=== PATIENT | female | born 1950 | race Hispanic/Latino ===

== ENCOUNTER 2018-08-14 07:10 | Emergency (ER) | payer MEDICARE ==
[~2018-08-14 07:10] MED LIST: ALBU8.5H8 IH; ASPI-1012 PO; ATOR20TA65 PO; FLUT1DIS4 IH; HYDR-4457 PO; METO-408 PO; VITAMIN D3 PO
[2018-08-14 08:31] LABS: BASOPHILS % (AUTO) 0.8 % (0.0-5.0); HEMATOCRIT 37.6 % (36-48); LYMPHOCYTES % (AUTO) 29.3 % (21.0-51.0); MEAN CORPUSCULAR HEMOGLOBIN 28.5 pg (27.0-33.0); MEAN CORPUSCULAR VOLUME 86.2 fL (79-99); MONOCYTES % (AUTO) 10.1 % (3.0-13.0); NEUTROPHILS % (AUTO) 58.8 % (40.0-77.0); PLATELET COUNT (AUTO) 180 K/uL (130-400); RED BLOOD CELL COUNT(AUTO) 4.36 MIL/uL (4.00-5.50); RED CELL DISTRIBUTION WIDTH 14.2 % (11.0-15.5); WHITE BLOOD COUNT (AUTO) 5.5 K/uL (4.8-10.8)
[2018-08-14 08:41] LABS: CREATININE 0.6 mg/dL (0.5-1.5)
[2018-08-14 08:47] LABS: ALBUMIN 3.7 g/dL (3.5-5.0); BILIRUBIN,TOTAL 0.5 mg/dL (0.2-1.0); TOTAL PROTEIN, SERUM 7.4 g/dL (6.0-8.3)
== END 2018-08-14 10:32 | disposition home or self-care (01) ==
LOC: EDH 07:10
DX: L03.115 Cellulitis of right lower limb (principal)
CPT/HCPCS: 36415; 80053; 85025; 93970

== ENCOUNTER 2022-08-03 06:59 | Day surgery (SDC) | payer MEDICARE ==
[2022-07-28 11:01] LABS: BASOPHILS % (AUTO) 0.7 % (0.0-5.0); EOSINOPHILS % (AUTO) 1.1 % (0.0-8.0); LYMPHOCYTES % (AUTO) 33.4 % (21.0-51.0); MEAN CORPUSCULAR HEMOGLOBIN 28.5 pg (27.0-33.0); MEAN CORPUSCULAR HGB CONC 31.5 g/dL (32.0-36.0); MEAN CORPUSCULAR VOLUME 90.3 fL (79-99); NEUTROPHILS % (AUTO) 55.1 % (40.0-77.0); PLATELET COUNT (AUTO) 181 K/uL (130-400); RED BLOOD CELL COUNT(AUTO) 4.32 MIL/uL (4.00-5.50); RED CELL DISTRIBUTION WIDTH 13.8 % (11.0-15.5); WHITE BLOOD COUNT (AUTO) 5.7 K/uL (4.8-10.8)
[2022-07-28 11:08] LABS: CREATININE 0.6 mg/dL (0.5-1.5); POTASSIUM 5.1 mmol/L (3.5-5.1)
[2022-07-28 11:14] LABS: APPEARANCE,URINE CLEAR (CLEAR); BILIRUBIN,URINE NEGATIVE (NEGATIVE); COLOR,URINE COLORLESS (YELLOW); GLUCOSE, URINE (UA) NEGATIVE (NEGATIVE); KETONES,URINE NEGATIVE (NEGATIVE); LEUKOCYTE ESTERASE ,URINE NEGATIVE Leu/uL (NEGATIVE); NITRATE,URINE NEGATIVE (NEGATIVE); OCCULT BLOOD,URINE NEGATIVE (NEGATIVE); PH,URINE 7.5 (5.0-8.0); PROTEIN,URINE NEGATIVE (NEGATIVE); UROBILINOGEN,URINE 0.2 mg/dL (0.2-1.0)
[2022-07-28 11:27] VITALS: BP 175/69
[2022-07-28 11:36] LABS: B-TYPE NATRIURETIC PEPTIDE 80 pg/mL (0-100)
[2022-07-28 12:07] LABS: INR 0.94 (0.85-1.15); PROTHROMBIN TIME 10.3 SEC (9.6-11.6)
[2022-07-28 12:09] LABS: PARTIAL THROMBOPLASTIN TIME 27.5 SEC (26.3-35.5)
[2022-08-03] VITALS (11 sets, daily range): BP systolic 96–124; BP diastolic 48–62
[~2022-08-03] VITALS: Ht 162.6 cm; Wt 75.4 kg
[~2022-08-03 06:59] MED LIST changes: +ALEN70TA80 PO; -ASPI-1012 PO; -HYDR-4457 PO; -METO-408 PO; -VITAMIN D3 PO; +WIXELA IH
[2022-08-03] MEDS ORDERED: 0.9%NACL 1000ML 1,000 ML IV ONE (08:06)
[2022-08-03] MEDS ORDERED: LIDOCAINE HCL 400MG/20ML VIAL ONE (09:44)
[2022-08-03] MEDS ORDERED: MEPERIDINE-PF 25 MG/ML SYG ONE ×2 (09:44→10:05)
[2022-08-03] MEDS ORDERED: IOHEXOL-350 75 ML VIAL IV ONE (09:44)
[2022-08-03] MEDS ORDERED: MIDAZOLAM HCL 1 MG/ML 2ML VIAL ONE ×2 (09:44→10:05)
[2022-08-03] MEDS ORDERED: NITROGLYCERIN 50MG VIAL ONE (09:45)
[2022-08-03] MEDS ORDERED: SODIUM BICARB 50MEQ 50ML VIAL 50 ML ONE (09:45)
[2022-08-03] MEDS ORDERED: IOHEXOL-350 50ML VIAL IV ONE (10:33)
[2022-08-03] MEDS ORDERED: 0.9%NACL 1000ML 1,000 ML IV SCH (11:00)
[2022-08-03] MEDS ORDERED: AEC81 PO (11:33)
== END 2022-08-03 15:10 | disposition home or self-care (01) ==
LOC: DAH 06:59
PROVIDERS: ATTEND Internal Medicine Cardiovascular Disease
DX: I35.0 Nonrheumatic aortic (valve) stenosis (principal); I25.10 Atherosclerotic heart disease of native coronary artery without angina pectoris; E78.2 Mixed hyperlipidemia; M19.90 Unspecified osteoarthritis, unspecified site; Z79.82 Long term (current) use of aspirin; Z79.01 Long term (current) use of anticoagulants; Z98.890 Other specified postprocedural states; Z90.49 Acquired absence of other specified parts of digestive tract; Z82.49 Family history of ischemic heart disease and other diseases of the circulatory system; Z98.41 Cataract extraction status, right eye; Z98.42 Cataract extraction status, left eye; Z96.642 Presence of left artificial hip joint; Z80.9 Family history of malignant neoplasm, unspecified
CPT/HCPCS: 80048; 83880; 85025; 85610; 85730; 81003; 36415; 71045; 93005; 93460; C1769; C1894 ×2; C1760; C1893; J3490 ×3; J7030; J2250; J2175; J1644; Q9967 ×2; A4215; A4222; A4221; A4663; A4216; A4606; Q9965; A4223 ×3; 96360; 96361; 99156; 99157

== ENCOUNTER → 2022-10-20 | Outpatient (CLI) | payer MEDICARE ==
[~2022-10-20] MED LIST changes: +AEC81 PO
== END | disposition home or self-care (01) ==
LOC: SHCH 08:03
PROVIDERS: ATTEND Internal Medicine Cardiovascular Disease
DX: I35.0 Nonrheumatic aortic (valve) stenosis (principal); I42.0 Dilated cardiomyopathy
CPT/HCPCS: 93306

== ENCOUNTER → 2022-11-20 | Outpatient (CLI) | payer MEDICARE ==
[~2022-11-20] MED LIST changes: +IOHEXOL 350 MG/ML 100ML INFUS..BTL IV ONE
== END | disposition home or self-care (01) ==
LOC: RAH 07:21
PROVIDERS: ATTEND Internal Medicine Cardiovascular Disease
DX: I70.0 Atherosclerosis of aorta (principal); I25.10 Atherosclerotic heart disease of native coronary artery without angina pectoris; I35.0 Nonrheumatic aortic (valve) stenosis; K76.89 Other specified diseases of liver; Z90.49 Acquired absence of other specified parts of digestive tract; Z96.642 Presence of left artificial hip joint
CPT/HCPCS: 74174; 75574; Q9967

== ENCOUNTER 2022-12-27 15:43 | Emergency (ER) | payer MEDICARE ==
[~2022-12-27] VITALS: Ht 162.6 cm; Wt 73.9 kg
[~2022-12-27 15:43] MED LIST changes: -IOHEXOL 350 MG/ML 100ML INFUS..BTL IV ONE
[2022-12-27 16:22] LABS: BASOPHILS # (AUTO) 0.05 K/uL (0.00-0.20); BASOPHILS % (AUTO) 0.7 % (0.0-5.0); EOSINOPHILS # (AUTO) 0.07 K/uL (0.00-0.70); HEMATOCRIT 39.2 % (36-48); IMMATURE GRANULOCYTE ABSOLUTE 0.02 K/uL (0-1); LYMPHOCYTES # (AUTO) 1.8 K/uL (1.0-4.8); LYMPHOCYTES % (AUTO) 24.5 % (21.0-51.0); MEAN CORPUSCULAR HEMOGLOBIN 28.4 pg (27.0-33.0); MEAN CORPUSCULAR HGB CONC 31.9 g/dL (32.0-36.0); MEAN CORPUSCULAR VOLUME 89.1 fL (79-99); MONOCYTES # (AUTO) 0.6 K/uL (0.1-1.0); MONOCYTES % (AUTO) 8.2 % (3.0-13.0); NEUTROPHILS # (AUTO) 4.7 K/uL (1.8-7.7); NEUTROPHILS % (AUTO) 65.3 % (40.0-77.0); PLATELET COUNT (AUTO) 169 K/uL (130-400); RED CELL DISTRIBUTION WIDTH 13.9 % (11.0-15.5); WHITE BLOOD COUNT (AUTO) 7.2 K/uL (4.8-10.8)
[2022-12-27 16:30] LABS: CREATININE 0.7 mg/dL (0.5-1.5); POTASSIUM 3.9 mmol/L (3.5-5.1)
[2022-12-27 16:35] LABS: ALBUMIN 3.9 g/dL (3.5-5.0); BILIRUBIN,TOTAL 0.5 mg/dL (0.2-1.0); TOTAL PROTEIN, SERUM 7.9 g/dL (6.0-8.3)
[2022-12-27] MEDS ORDERED: LIDOCAINE HCL 2% VISCOUS 15 ML UDCUP PO ONE (18:00)
[2022-12-27] MEDS ORDERED: LORAZEPAM 1 MG TABLET PO ONE (18:00)
[2022-12-27] MEDS ORDERED: MAG/ALUM/SIMETH 30 ML UDCUP PO ONE (18:00)
[2022-12-27] MEDS ORDERED: PANTOPRAZOLE 40 MG TAB DR PO ONE (19:30)
[2022-12-27] MEDS ORDERED: PANT40TA55 PO (19:44)
[2022-12-27 20:19] VITALS: BP 118/68; PULSE 86; RESP 20; O2SAT 96
== END 2022-12-27 20:31 | disposition home or self-care (01) ==
LOC: EDH 15:43
DX: R13.19 Other dysphagia (principal); R10.13 Epigastric pain; F41.9 Anxiety disorder, unspecified; I35.0 Nonrheumatic aortic (valve) stenosis; E78.00 Pure hypercholesterolemia, unspecified; Z79.82 Long term (current) use of aspirin; Z79.899 Other long term (current) drug therapy; Z98.890 Other specified postprocedural states; Z88.8 Allergy status to other drugs, medicaments and biological substances
CPT/HCPCS: 36415; 71045; 80053; 84484; 85025; 93005

== ENCOUNTER 2023-03-10 13:22 | Emergency (ER) | payer MEDICARE ==
[~2023-03-10] VITALS: Ht 162.6 cm; Wt 73.0 kg
[~2023-03-10 13:22] MED LIST changes: +PANT40TA55 PO
[2023-03-10 14:07] LABS: BASOPHILS # (AUTO) 0.05 K/uL (0.00-0.20); EOSINOPHILS # (AUTO) 0.05 K/uL (0.00-0.70); HEMATOCRIT 33.9 % (36-48); IMMATURE GRANULOCYTE ABSOLUTE 0.03 K/uL (0-1); LYMPHOCYTES # (AUTO) 1.5 K/uL (1.0-4.8); LYMPHOCYTES % (AUTO) 29.3 % (21.0-51.0); MEAN CORPUSCULAR HEMOGLOBIN 28.7 pg (27.0-33.0); MEAN CORPUSCULAR HGB CONC 32.2 g/dL (32.0-36.0); MEAN CORPUSCULAR VOLUME 89.2 fL (79-99); MONOCYTES # (AUTO) 0.5 K/uL (0.1-1.0); MONOCYTES % (AUTO) 10.2 % (3.0-13.0); NEUTROPHILS # (AUTO) 2.9 K/uL (1.8-7.7); NEUTROPHILS % (AUTO) 57.9 % (40.0-77.0); PLATELET COUNT (AUTO) 149 K/uL (130-400); RED CELL DISTRIBUTION WIDTH 13.5 % (11.0-15.5)
[2023-03-10 14:15] LABS: CREATININE 0.6 mg/dL (0.5-1.5); POTASSIUM 4.1 mmol/L (3.5-5.1)
[2023-03-10 14:19] LABS: ALBUMIN 3.6 g/dL (3.5-5.0); BILIRUBIN,TOTAL 0.4 mg/dL (0.2-1.0); TOTAL PROTEIN, SERUM 7.3 g/dL (6.0-8.3)
[2023-03-10] MEDS ORDERED: MAG/ALUM/SIMETH 30 ML UDCUP PO ONE (18:00)
[2023-03-10 18:36] LABS: SARS-CoV-2, RNA, NAAT NEGATIVE SARS CoV-2 (NEGATIVE)
[2023-03-10 18:41] LABS: INFLUENZA TYPE A Negative For Type A (NEGATIVE); INFLUENZA TYPE B Negative For Type B (NEGATIVE)
[2023-03-10] MEDS ORDERED: PANTOPRAZOLE 40 MG/VIAL IVP ONE (19:30)
[2023-03-10 19:41] VITALS: BP 123/61; PULSE 91; RESP 18; O2SAT 97
[2023-03-10] MEDS ORDERED: PANTOPRAZOLE 40 MG TAB DR PO SCH (20:00)
[2023-03-10] MEDS ORDERED: OMEP20CA12 PO (20:04)
== END 2023-03-10 20:38 | disposition home or self-care (01) ==
LOC: EDH 13:22
DX: R10.13 Epigastric pain (principal); R07.89 Other chest pain; E78.00 Pure hypercholesterolemia, unspecified; Z79.51 Long term (current) use of inhaled steroids; Z79.82 Long term (current) use of aspirin; Z79.899 Other long term (current) drug therapy; Z88.1 Allergy status to other antibiotic agents; Z20.822 Contact with and (suspected) exposure to COVID-19
CPT/HCPCS: 36415; 71045; 80053; 84484; 85025; 87635; 87804; 93005

== ENCOUNTER 2023-03-15 00:49 | Emergency (ER) | payer MEDICARE ==
[~2023-03-15] VITALS: Ht 162.6 cm; Wt 74.4 kg
[~2023-03-15 00:49] MED LIST changes: +OMEP20CA12 PO
[2023-03-15 01:20] LABS: APPEARANCE,URINE CLEAR (CLEAR); BILIRUBIN,URINE NEGATIVE (NEGATIVE); COLOR,URINE YELLOW (YELLOW); GLUCOSE, URINE (UA) NEGATIVE (NEGATIVE); KETONES,URINE 5 mg/dL (NEGATIVE); LEUKOCYTE ESTERASE ,URINE 75 Leu/uL (NEGATIVE); NITRATE,URINE NEGATIVE (NEGATIVE); OCCULT BLOOD,URINE SMALL (NEGATIVE); PH,URINE 5.5 (5.0-8.0); PROTEIN,URINE NEGATIVE (NEGATIVE); UROBILINOGEN,URINE 0.2 mg/dL (0.2-1.0)
[2023-03-15 01:26] LABS: ADD UA MICROSCOPIC YES
[2023-03-15 01:28] LABS: MUCUS,URINE FEW LPF (None Seen); SQUAMOUS EPITHELIAL CELL,UR RARE /HPF (0-2)
[2023-03-15 01:39] LABS: RAPID GROUP A STREP negative (NEGATIVE)
[2023-03-15 01:42] LABS: BASOPHILS # (AUTO) 0.06 K/uL (0.00-0.20); BASOPHILS % (AUTO) 1.1 % (0.0-5.0); EOSINOPHILS # (AUTO) 0.07 K/uL (0.00-0.70); EOSINOPHILS % (AUTO) 1.3 % (0.0-8.0); HEMATOCRIT 34.7 % (36-48); IMMATURE GRANULOCYTE ABSOLUTE 0.02 K/uL (0-1); LYMPHOCYTES # (AUTO) 1.7 K/uL (1.0-4.8); LYMPHOCYTES % (AUTO) 32.1 % (21.0-51.0); MEAN CORPUSCULAR HEMOGLOBIN 28.7 pg (27.0-33.0); MEAN CORPUSCULAR HGB CONC 32.3 g/dL (32.0-36.0); MONOCYTES # (AUTO) 0.5 K/uL (0.1-1.0); NEUTROPHILS % (AUTO) 55.1 % (40.0-77.0); PLATELET COUNT (AUTO) 179 K/uL (130-400); RED CELL DISTRIBUTION WIDTH 13.3 % (11.0-15.5); WHITE BLOOD COUNT (AUTO) 5.4 K/uL (4.8-10.8)
[2023-03-15 01:42] LABS: SARS-CoV-2, RNA, NAAT NEGATIVE SARS CoV-2 (NEGATIVE)
[2023-03-15 01:44] LABS: INFLUENZA TYPE A Negative For Type A (NEGATIVE); INFLUENZA TYPE B Negative For Type B (NEGATIVE)
[2023-03-15 02:04] LABS: CREATININE 0.7 mg/dL (0.5-1.5); POTASSIUM 3.6 mmol/L (3.5-5.1)
[2023-03-15 02:07] LABS: ALBUMIN 3.6 g/dL (3.5-5.0); BILIRUBIN,TOTAL 0.4 mg/dL (0.2-1.0); TOTAL PROTEIN, SERUM 7.1 g/dL (6.0-8.3)
[2023-03-15 04:13] VITALS: BP 122/62; PULSE 80; RESP 18; O2SAT 99
== END 2023-03-15 04:14 | disposition home or self-care (01) ==
LOC: EDH 00:49
DX: R07.89 Other chest pain (principal); E78.00 Pure hypercholesterolemia, unspecified; Z79.51 Long term (current) use of inhaled steroids; Z79.82 Long term (current) use of aspirin; Z79.899 Other long term (current) drug therapy; Z88.1 Allergy status to other antibiotic agents; Z20.822 Contact with and (suspected) exposure to COVID-19
CPT/HCPCS: 36415; 71045; 80053; 81001; 84484; 85025; 87088; 87635; 87804; 87880; 93005

== ENCOUNTER → 2023-03-31 | Outpatient (CLI) | payer MEDICARE | END | disposition home or self-care (01) | LOC: RAH 08:17 | PROVIDERS: ATTEND Internal Medicine Gastroenterology | DX: K21.9 Gastro-esophageal reflux disease without esophagitis (principal); R13.10 Dysphagia, unspecified; Z90.49 Acquired absence of other specified parts of digestive tract | CPT/HCPCS: 74220 ==

== ENCOUNTER → 2023-04-22 | Outpatient (CLI) | payer MEDICARE | END | disposition home or self-care (01) | LOC: SHCH 14:36 | PROVIDERS: ATTEND Internal Medicine Cardiovascular Disease | DX: I35.0 Nonrheumatic aortic (valve) stenosis (principal); I10 Essential (primary) hypertension; E78.5 Hyperlipidemia, unspecified | CPT/HCPCS: 93306 ==

== ENCOUNTER 2023-12-15 10:48 | Observation (INO) | payer MEDICARE ==
[~2023-12-15] VITALS: Ht 162.6 cm; Wt 69.9 kg
[2023-12-15 11:31] LABS: BASOPHILS # (AUTO) 0.03 K/uL (0.00-0.20); BASOPHILS % (AUTO) 0.6 % (0.0-5.0); EOSINOPHILS # (AUTO) 0.06 K/uL (0.00-0.70); EOSINOPHILS % (AUTO) 1.3 % (0.0-8.0); HEMATOCRIT 37.1 % (36-48); IMMATURE GRANULOCYTE ABSOLUTE 0.03 K/uL (0-1); LYMPHOCYTES # (AUTO) 1.5 K/uL (1.0-4.8); LYMPHOCYTES % (AUTO) 32.1 % (21.0-51.0); MEAN CORPUSCULAR HEMOGLOBIN 27.8 pg (27.0-33.0); MEAN CORPUSCULAR HGB CONC 31.8 g/dL (32.0-36.0); MEAN CORPUSCULAR VOLUME 87.3 fL (79-99); MONOCYTES # (AUTO) 0.5 K/uL (0.1-1.0); MONOCYTES % (AUTO) 10.9 % (3.0-13.0); NEUTROPHILS # (AUTO) 2.6 K/uL (1.8-7.7); NEUTROPHILS % (AUTO) 54.5 % (40.0-77.0); PLATELET COUNT (AUTO) 173 K/uL (130-400); RED BLOOD CELL COUNT(AUTO) 4.25 MIL/uL (4.00-5.50); RED CELL DISTRIBUTION WIDTH 14.4 % (11.0-15.5); WHITE BLOOD COUNT (AUTO) 4.8 K/uL (4.8-10.8)
[2023-12-15 11:44] LABS: ALBUMIN 3.6 g/dL (3.5-5.0); BILIRUBIN,TOTAL 0.5 mg/dL (0.2-1.0); CREATININE 0.7 mg/dL (0.5-1.0); POTASSIUM 4.2 mmol/L (3.5-5.1)
[2023-12-15] MEDS ORDERED: LACTULOSE 20 GM/30 ML UDCUP PO PRN (13:30)
[2023-12-15] MEDS ORDERED: PoTASSium chloRIDE 20MEQ/100ML 100 ML IV PRN ×2 (13:30)
[2023-12-15] MEDS ORDERED: hydrALAZine 25MG TABLET PO PRN (13:30)
[2023-12-15] MEDS ORDERED: PoTASSium chloRIDE 20MEQ ER 20 MEQ ERTAB PO PRN (13:30)
[2023-12-15] MEDS ORDERED: polyETHYLene GLYCol 3350 17 GM POWD.PACK PO PRN (13:30)
[2023-12-15] MEDS ORDERED: ondanSETRON 4MG INJ IV PRN (13:30)
[2023-12-15] MEDS ORDERED: NITROGLYCERIN 0.4 MG SL TAB SL PRN (13:30)
[2023-12-15] MEDS ORDERED: MAGNESIUM 2GM PREMIX 50ML 50 ML IV PRN (13:30)
[2023-12-15] MEDS ORDERED: doCUSate SODIUM 100 MG CAP PO PRN (13:30)
[2023-12-15] MEDS ORDERED: PoTASSium chl 10% ELIXIR 20MEQ 20 MEQ/15 ML UDCUP PO PRN (13:30)
[2023-12-15] MEDS ORDERED: guaiFENesin-DM 200/20MG 10ML PO PRN (13:30)
[2023-12-15] MEDS ORDERED: acetaMINOPHEN 325 MG TAB PO PRN (13:30)
[2023-12-15] MEDS: ASPIRIN 325MG TAB PO ONE (13:47)
[2023-12-15] MEDS ORDERED: CLOP75TA32 PO (14:36)
[2023-12-15] MEDS ORDERED: NITR0.4T50 SL (14:36)
[2023-12-15] MEDS ORDERED: PANT20TA18 PO (14:36)
[2023-12-15] MEDS ORDERED: ALBUTEROL 0.083% 2.5 MG/3 ML INH IH PRN (17:30)
[2023-12-15] MEDS: metoCLOPRAmide 10 MG/2 ML VIAL IVP SCH (18:24)
[2023-12-15] MEDS: LIDOCAINE HCL 2% VISCOUS 30 ML, MAG/ALUM/SIMETH 30ML 30 ML, DICYCLOMINE HCL 20 MG PO SCH (18:28)
[2023-12-15] MEDS: DICYCLOMINE HCL 10 MG/5 ML ML PO ONE (18:29)
[2023-12-15] MEDS: LIDOCAINE HCL 2% VISCOUS 15 ML UDCUP ONE (18:29)
[2023-12-15] MEDS: MAG/ALUM/SIMETH 30 ML UDCUP ONE (18:30)
[2023-12-15] MEDS ORDERED: IOHEXOL-350 75 ML VIAL IV ONE (19:45)
[2023-12-15 20:00] VITALS: BP 112/66; PULSE 80; RESP 19; TEMP 97.5
[2023-12-15 20:20] VITALS: O2SAT 97
[2023-12-15] MEDS ORDERED: METO-408 PO (20:20)
[2023-12-15 23:00] VITALS: BP 106/50; PULSE 76; RESP 19; TEMP 97.3
[2023-12-15] MEDS ORDERED: COMPOUND PO MISCELLANEOUS 1 EACH MISC MISC PRN (23:30)
[2023-12-16 04:00] VITALS: BP 113/53; PULSE 78; RESP 19; TEMP 98.2
[2023-12-16 05:44] LABS: BASOPHILS # (AUTO) 0.03 K/uL (0.00-0.20); BASOPHILS % (AUTO) 0.7 % (0.0-5.0); EOSINOPHILS # (AUTO) 0.06 K/uL (0.00-0.70); EOSINOPHILS % (AUTO) 1.4 % (0.0-8.0); HEMATOCRIT 35.8 % (36-48); IMMATURE GRANULOCYTE ABSOLUTE 0.02 K/uL (0-1); LYMPHOCYTES # (AUTO) 1.7 K/uL (1.0-4.8); LYMPHOCYTES % (AUTO) 40.3 % (21.0-51.0); MEAN CORPUSCULAR HEMOGLOBIN 28.2 pg (27.0-33.0); MEAN CORPUSCULAR HGB CONC 31.8 g/dL (32.0-36.0); MEAN CORPUSCULAR VOLUME 88.6 fL (79-99); MONOCYTES # (AUTO) 0.4 K/uL (0.1-1.0); MONOCYTES % (AUTO) 10.4 % (3.0-13.0); NEUTROPHILS # (AUTO) 1.9 K/uL (1.8-7.7); NEUTROPHILS % (AUTO) 46.7 % (40.0-77.0); PLATELET COUNT (AUTO) 148 K/uL (130-400); RED BLOOD CELL COUNT(AUTO) 4.04 MIL/uL (4.00-5.50); RED CELL DISTRIBUTION WIDTH 14.2 % (11.0-15.5); WHITE BLOOD COUNT (AUTO) 4.1 K/uL (4.8-10.8)
[2023-12-16 05:53] LABS: CREATININE 0.7 mg/dL (0.5-1.0); MAGNESIUM 2.2 mg/dL (1.80-2.40)
[2023-12-16 06:09] LABS: B-TYPE NATRIURETIC PEPTIDE 87 pg/mL (0-100)
[2023-12-16] MEDS: acetaMINOPHEN 325 MG TAB PO PRN (06:21)
[2023-12-16 08:00] VITALS: O2SAT 95
[2023-12-16 08:18] VITALS: BP 113/71; PULSE 80; RESP 16; TEMP 98.7
[2023-12-16] MEDS: PANTOPrazole 40 MG TAB DR PO SCH (09:14)
[2023-12-16] MEDS: ASPIRIN 81 MG EC TAB PO SCH (09:14)
[2023-12-16] MEDS: atorVAStatin 20 MG TABLET PO SCH (09:14)
[2023-12-16] MEDS: cloPIDOgrel 75MG TAB PO SCH (09:15)
[2023-12-16 11:33] VITALS: BP 102/58; PULSE 80; RESP 16; TEMP 99.1
== END 2023-12-16 17:35 | disposition home or self-care (01) ==
LOC: EDH 10:48 → EDHIP 13:19 → 3DH 20:07
PROVIDERS: ADMIT Internal Medicine Critical Care Medicine; ATTEND Internal Medicine Critical Care Medicine
DX: R07.89 Other chest pain (principal); D64.9 Anemia, unspecified; I50.32 Chronic diastolic (congestive) heart failure; R53.1 Weakness; E78.00 Pure hypercholesterolemia, unspecified; M81.0 Age-related osteoporosis without current pathological fracture; I35.0 Nonrheumatic aortic (valve) stenosis; R11.0 Nausea; Z95.2 Presence of prosthetic heart valve; Z79.82 Long term (current) use of aspirin; Z91.048 Other nonmedicinal substance allergy status; Z90.49 Acquired absence of other specified parts of digestive tract; Z88.5 Allergy status to narcotic agent; Z79.899 Other long term (current) drug therapy
CPT/HCPCS: 96374; 84484 ×5; 99285; 80053; 83880 ×2; 85025 ×2; 85378; 36415 ×2; 71045; 71270; 93005; 96376; 83735; 80048; G0378 ×28; J2765 ×3; Q9967

== ENCOUNTER 2024-07-17 08:47 | Emergency (ER) | payer MEDICARE ==
[~2024-07-17] VITALS: Ht 162.6 cm; Wt 71.2 kg
[~2024-07-17 08:47] MED LIST changes: +CLOP75TA32 PO; -FLUT1DIS4 IH; +METO-408 PO; +NITR0.4T50 SL; +PANT20TA18 PO; -PANT40TA55 PO
[2024-07-17 09:14] LABS: BASOPHILS # (AUTO) 0.05 K/uL (0.00-0.20); BASOPHILS % (AUTO) 0.9 % (0.0-5.0); EOSINOPHILS # (AUTO) 0.06 K/uL (0.00-0.70); EOSINOPHILS % (AUTO) 1.1 % (0.0-8.0); HEMATOCRIT 38.6 % (36-48); IMMATURE GRANULOCYTE ABSOLUTE 0.04 K/uL (0-1); LYMPHOCYTES # (AUTO) 1.7 K/uL (1.0-4.8); LYMPHOCYTES % (AUTO) 31.1 % (21.0-51.0); MEAN CORPUSCULAR HEMOGLOBIN 28.9 pg (27.0-33.0); MEAN CORPUSCULAR HGB CONC 33.2 g/dL (32.0-36.0); MEAN CORPUSCULAR VOLUME 87.1 fL (79-99); MONOCYTES # (AUTO) 0.6 K/uL (0.1-1.0); MONOCYTES % (AUTO) 10.2 % (3.0-13.0); PLATELET COUNT (AUTO) 173 K/uL (130-400); RED BLOOD CELL COUNT(AUTO) 4.43 MIL/uL (4.00-5.50); RED CELL DISTRIBUTION WIDTH 13.7 % (11.0-15.5); WHITE BLOOD COUNT (AUTO) 5.4 K/uL (4.8-10.8)
[2024-07-17 09:19] LABS: APPEARANCE,URINE CLEAR (CLEAR); BILIRUBIN,URINE NEGATIVE (NEGATIVE); COLOR,URINE YELLOW (YELLOW); CREATININE 0.6 mg/dL (0.5-1.0); GLUCOSE, URINE (UA) NEGATIVE (NEGATIVE); KETONES,URINE NEGATIVE (NEGATIVE); LEUKOCYTE ESTERASE ,URINE 25 Leu/uL (NEGATIVE); NITRATE,URINE NEGATIVE (NEGATIVE); OCCULT BLOOD,URINE NEGATIVE (NEGATIVE); POTASSIUM 3.8 mmol/L (3.5-5.1); PROTEIN,URINE NEGATIVE (NEGATIVE)
[2024-07-17 09:22] LABS: ADD UA MICROSCOPIC YES
--- NOTE | 2024-07-17 09:23 | EKG ---
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
[2024-07-17 09:25] LABS: MUCUS,URINE MOD LPF (None Seen); SQUAMOUS EPITHELIAL CELL,UR RARE /HPF (0-2)
[2024-07-17 09:35] LABS: B-TYPE NATRIURETIC PEPTIDE 82 pg/mL (0-100)
[2024-07-17] MEDS: morPHINE 2 MG SYG ONE (10:34)
[2024-07-17] MEDS: PANTOPrazole 40 MG/VIAL IVP ONE (10:36)
[2024-07-17] MEDS: NITROGLYCERIN 0.4 MG SL TAB SL PRN (10:37)
--- NOTE | 2024-07-17 10:43 | ERN ---
General Chief Complaint: Shortness of Breath Stated Complaint: SOB, CHEST TIGHTNESS Time Seen by MD: 08:51 Source: patient History of Present Illness Initial Comments PATIENT IS A 73-YEAR-OLD FEMALE COMING IN WITH SHORTNESS OF BREATH CHEST DISCOMFORT AND ABDOMINAL PAIN. PATIENT STATES THAT THIS HAS BEEN ONGOING FOR A WEEK. SHE STATES THAT THE DISCOMFORT WAXES AND WANES BUT TODAY THE PAIN RADIATES HER NECK. SHE STATES HE DOES HAS A HISTORY OF VALVULAR DISEASE. Allergies: Coded Allergies: famotidine (Unverified Allergy, Unknown, 12/15/23) levofloxacin (Unverified Allergy, Unknown, 05/06/18) Uncoded Allergies: TAPE (Allergy, Mild, SKIN TEAR, 11/29/13) IBUPROPHEN (Allergy, Unknown, NAUSEA,SHAKY, 11/29/13) Home Meds Active Scripts Omeprazole (Omeprazole) 20 Mg Capsule.dr, 20 MG PO DAILY, #15 CAP 0 Refills Prov:MACIE RIVERA NP 03/10/23 Reported Medications Metoprolol Succinate (Metoprolol Succinate) 25 Mg Tab.er.24h, 1 TAB PO DAILY for 30 Days, #30 TAB 0 Refills 12/15/23 Nitroglycerin (Nitroglycerin) 0.4 Mg Tab.subl, 1 TAB SL AD for chest pain, #25 TAB 0 Refills 1st sign of attack; may repeat every 5 mins; if pain persists after 3 in 15 min, medical attention is recommended 12/15/23 Clopidogrel Bisulfate (Clopidogrel) 75 Mg Tablet, 1 TAB PO DAILY for 30 Days, #30 TAB 0 Refills 12/15/23 Pantoprazole Sodium (Pantoprazole Sodium) 20 Mg Tablet.dr, 1 TAB PO DAILY for 30 Days, #30 TAB 0 Refills 12/15/23 Aspirin (ASPIRIN 81 MG ECTAB) 81 Mg Ectab, 81 MG PO DAILY, TAB.EC 08/03/22 Alendronate Sodium (Alendronate Sodium) 70 Mg Tablet, 70 MG PO WEEKLY, TAB 07/28/22 [Wixela] No Conflict Check, 1 PUFF IH BID PRN for SHORTNESS OF BREATH/WHEEZING 07/28/22 Albuterol Sulfate (Proair Hfa) 8.5 Gm Hfa.aer.ad, 2 PUFF IH Q6HPRN PRN for ASTHMA 05/06/18 Atorvastatin Calcium (Atorvastatin Calcium) 20 Mg Tablet, 20 MG PO AM, TAB 05/06/18 Past Medical History Past Medical History: High Cholesterol, Heart Disease Medical History Other: OSTEOPOROSIS Past Surgical History: Cholecystectomy, Other Surgical History Other: AORTIC HEART REPLACEMENT, HIP Family History Family History: CAD, DM, HTN Social History Social History: Negative, Lives with family ROS Dictation CONSTITUTIONAL: NO CHILLS, NO FEVER, NO WEAKNESS, NO DIAPHORESIS, NO MALAISE. HEAD/FACE: NO SIGNS OF TRAUMA. EENT: NO EYE PAIN, NO BLURRED VISION, NO TEARING, NO DOUBLE VISION, NO EAR PAIN, NO EAR DISCHARGE, NO NOSE PAIN, NO NASAL CONGESTION, NO THROAT PAIN, NO THROAT SWELLING, NO MOUTH PAIN. RESPIRATORY: NO COUGH, NO ORTHOPNEA, SOB, NO STRIDOR, NO WHEEZING. CARDIOVASCULAR: NO CHEST PAIN, NO EDEMA, NO PALPITATIONS, NO SYNCOPE. GASTROINTESTINAL/ABDOMINAL: NO ABDOMINAL PAIN, NO CONSTIPATION, NO DIARRHEA, NO NAUSEA, NO VOMITING. GENITOURINARY: NO ABNORMAL DISCHARGE, NO DYSURIA, NO FREQUENT URINATION, NO HEMATURIA. NO COMPLAINTS OF PAIN IN THE GENITALS. MUSCULOSKELETAL: NO BACK PAIN, NO GOUT, NO JOINT PAIN, NO JOINT SWELLING, NO MUSCLE PAIN, NO MUSCLE STIFFNESS, NO NECK PAIN. INTEGUMENTARY: NO CHANGE IN COLOR, NO CHANGE IN HAIR/NAILS, NO DRYNESS, NO LESION, NO LUMPS, NO RASH. NEUROLOGICAL/PSYCH: NO ANXIETY, NOT DEPRESSED, NO EMOTIONAL PROBLEM, NO HEADACHE, NO NUMBNESS, NO PRE-EXISTING DEFICIT, NO HISTORY OF SEIZURES, NO TREMORS, NO WEAKNESS. HEMATOLOGIC/LYMPHATIC: NOT ANEMIC, NO HISTORY OF BLOOD CLOTS, NO APPARENT BLEEDING, NO BRUISING, GLANDS NOT SWOLLEN. ALL SYSTEMS NEGATIVE, EXCEPT NOTED. Physical Exam Physical Exam Dictation VITAL SIGNS: REVIEWED. GENERAL APPEARANCE: ALERT, ORIENTED X3, NO ACUTE DISTRESS, OBESE. HEAD AND FACE: NON-TRAUMATIC. EYES: PERRL, PINK CONJUNCTIVAS, EYELID NO TRAUMA, ANTERIOR CHAMBER CLEAR. EARS: PINNAS INTACT AND NO SIGNS OF TRAUMA OR ERYTHEMA. EAR CANALS CLEAR AND NO DISCHARGE. TMS NO ERYTHEMA. NOSE: NO DISCHARGE, NO BLEEDING. OROPHARYNX: MOUTH NORMAL, TEETH NO CARIES, TONGUE PINK. PHARYNX CLEAR, NO ERYTHEMA. TONSILS NO EXUDATES, NO ABSCESSES NOTED. MUCOUS MEMBRANE MOIST. NECK: SUPPLE, NON-TENDER, NO THYROMEGALY, NO MASSES, NO JVD, NO BRUITS. BREAST: DEFERRED. CHEST: NO TENDERNESS, NO CREPITUS, NO PARADOXICAL MOVEMENT, NO RETRACTIONS. LUNGS: CLEAR, WELL-VENTILATED, SYMMETRIC, NO RALES, NO WHEEZING, NO RHONCHI, NO STRIDOR, GOOD BREATH SOUNDS BILATERALLY. HEART: REGULAR RATE, REGULAR RHYTHM, NO MURMUR, NO GALLOPS. VASCULAR: NO PERIPHERAL EDEMA. ABDOMEN: SOFT, POSITIVE BOWEL SOUNDS, NONDISTENDED, NO GUARDING, NONTENDER, NO REBOUND, NO MASSES NO HEPATOMEGALY, NO SPLENOMEGALY, NO CAO'S SIGN, NO HERNIAS. RECTAL: DEFERRED. GENITAL: DEFERRED. NEUROLOGICAL: NORMAL SPEECH, GROSS MOTOR FUNCTION INTACT, GROSS SENSORY FUNCTION INTACT. MUSCULOSKELETAL: NECK NONTENDER, FULL RANGE OF MOTION, BACK NONTENDER, FULL RANGE OF MOTION. EXTREMITIES: NONTENDER, FULL RANGE OF MOTION. SKIN: COLOR PINK, DRY, NO TURGOR, NO RASH, NO LACERATIONS, NO ABRASIONS, NO CONTUSIONS. LYMPHATICS: DEFERRED. Results Laboratory and Microbiology Lab and Micro Result Laboratory Tests Test 07/17/24 09:03 07/17/24 10:09 White Blood Count 5.4 K/uL (4.8-10.8) Red Blood Count 4.43 MIL/uL (4.00-5.50) Hemoglobin 12.8 g/dL (12.0-16.0) Hematocrit 38.6 % (36-48) Mean Corpuscular Volume 87.1 fL (79-99) Mean Corpuscular Hemoglobin 28.9 pg (27.0-33.0) Mean Corpuscular Hemoglobin Concent 33.2 g/dL (32.0-36.0) Red Cell Distribution Width 13.7 % (11.0-15.5) Platelet Count 173 K/uL (130-400) Mean Platelet Volume 9.8 fL (7.5-10.5) Immature Granulocyte % (Auto) 0.7 % (0-1) Neutrophils (%) (Auto) 56.0 % (40.0-77.0) Lymphocytes (%) (Auto) 31.1 % (21.0-51.0) Monocytes (%) (Auto) 10.2 % (3.0-13.0) Eosinophils (%) (Auto) 1.1 % (0.0-8.0) Basophils (%) (Auto) 0.9 % (0.0-5.0) Neutrophils # (Auto) 3.0 K/uL (1.8-7.7) Lymphocytes # (Auto) 1.7 K/uL (1.0-4.8) Monocytes # (Auto) 0.6 K/uL (0.1-1.0) Eosinophils # (Auto) 0.06 K/uL (0.00-0.70) Basophils # (Auto) 0.05 K/uL (0.00-0.20) Absolute Immature Granulocyte (auto 0.04 K/uL (0-1) Nucleated Red Blood Cells 0.0 % (0.0-0.19) Urine Color YELLOW (YELLOW) Urine Appearance CLEAR (CLEAR) Urine pH 6.0 (5.0-8.0) Urine Specific [place] 1.022 (1.001-1.031) Urine Protein NEGATIVE mg/dL (NEGATIVE) Urine Glucose (UA) NEGATIVE mg/dL (NEGATIVE) Urine Ketones NEGATIVE mg/dL (NEGATIVE) Urine Occult Blood NEGATIVE (NEGATIVE) Urine Nitrate NEGATIVE (NEGATIVE) Urine Bilirubin NEGATIVE mg/dL (NEGATIVE) Urine Urobilinogen 2.0 mg/dL (0.2-1.0) H Urine Leukocyte Esterase 25 Liyah/uL (NEGATIVE) H Urine RBC 2-5 /HPF (0-1) H Urine WBC 2-5 /HPF (0-1) H Urine Squamous Epithelial Cells RARE /HPF (0-2) Urine Bacteria None /HPF (None Seen) Sodium Level 138 mmol/L (136-145) Potassium Level 3.8 mmol/L (3.5-5.1) Chloride Level 104 mmol/L (101-111) Carbon Dioxide Level 28 mmol/L (21-32) Blood Urea Nitrogen 12 mg/dL (7-18) Creatinine 0.6 mg/dL (0.5-1.0) Glomerular Filtration Rate Calc 94 mL/min (>90) Random Glucose 104 mg/dL (70-105) Total Calcium 8.9 mg/dL (8.5-10.1) Troponin I High Sensitivity 4 ng/L (4-50) 4 ng/L (4-50) B-Type Natriuretic Peptide 82 pg/mL (0-100) Labs Reviewed?: Yes EKG/XRAY/US/CT/MRI EKG Comment [id number] TIME 9:04 A.M. VENTRICULAR RATE [address] SINUS [address]M [place] [address] WAVE ELEVATION OR DEPRESSION MDM MDM: DIFFERENTIAL DIAGNOSIS: CHEST PAIN, SHORTNESS OF BREATH, HISTORY OF VALVULAR DISEASE, UTI, RATIONALE: TESTS CONSIDERED AND ORDERED SECONDARY TO SHARED DECISION MAKING INCLUDE: LABS, ECG AND RADIOLOGY PREVIOUS OUTSIDE RECORDS REVIEWED: OLD ER VISITS. RISK OF COMPLICATION AND/OR MORBIDITY OR MORTALITY OF PATIENT MANAGEMENT: NONE MEDICATIONS-PER MEDICATION RECONCILIATION NEED FOR HOSPITALIZATION: PATIENT DOES MEET CRITERIA FOR HOSPITALIZATION. NEED FOR EMERGENCY MAJOR/MINOR SURGERY: NO THERE ARE NO SOCIAL CONCERNS WITH THIS PATIENT. PRESCRIPTION DRUG MANAGEMENT PRESCRIPTIONS WILL INCLUDE SYMPTOMATIC CARE PATIENT'S PRIOR EXTERNAL MEDICAL RECORDS FROM OTHER ER VISITS WERE REVIEWED BY ME INDICATED. PRIOR TESTING AND RESULTS FROM PREVIOUS VISITS WERE REVIEWED. PRIOR TESTS WERE TAKEN INTO ACCOUNT WITH MEDICAL DECISION MAKING AND RESOURCE UTILIZATION, INDEPENDENT HISTORIAN/HISTORIANS WERE USED TO OBTAIN COMPLETE MEDICAL HISTORY. I INDEPENDENTLY INTERPRETED THE TEST THAT WERE PERFORMED, RESULTS WERE REVIEWED BY ME AND CONSIDERED FINDINGS ON RADIOLOGY IF ORDERED. MEDICAL MANAGEMENT AND EXAMINATION INTERPRETATION DISCUSSIONS WERE HAD BY ME WITH OTHER QUALIFIED HEALTHCARE PROFESSIONALS INDICATED FOR THE PATIENT'S CARE. EXPLAINED TO PATIENT THE FINDINGS AND DUE TO THE PRESENTATION I RECOMMENDED ADMISSION AND ADVISED ADMISSION WOULD BE THE MOST APPROPRIATE DISPOSITION BUT PATIENT REFUSED STATES SHE WANTS TO GO HOME. ED Course Orders Procedure Category Date Status Time Cbc With Differential LAB 07/17/24 Complete 09:00 B-Type Natriuretic LAB 07/17/24 Complete Peptide 09:00 Chest 1vw RAD 07/17/24 Taken 09:00 12 Lead Ekg Tracing- EKG 07/17/24 Complete Technical 09:00 Troponin I High LAB 07/17/24 Complete Sensitivity 09:00 Urinalysis Profile LAB 07/17/24 Complete 09:00 Basic Metabolic Panel LAB 07/17/24 Complete 09:00 Morphine 2mg Syg PHA 07/17/24 Complete (Morphine 2mg Syg) 09:49 Troponin I High LAB 07/17/24 Complete Sensitivity 09:50 Nitroglycerin 0.4mg PHA 07/17/24 In Process Sl Tab (Nitrostat) 10:00 Pantoprazole 40mg Inj PHA 07/17/24 Complete (Protonix 40mg Inj 10:00 Ceftriaxone 1g Vial PHA 07/17/24 Complete (Rocephine 1g Inj) 11:00 Current Medications Medications (Trade) Dose Ordered Sig/Arin Route PRN Reason Start Time Stop Time Status Last Admin Dose Admin Ceftriaxone Sodium (ROCEphine 1G INJ) 1 gm ONCE ONCE IVPB 07/17/24 11:00 07/17/24 11:01 DC 07/17/24 10:52 Morphine Sulfate (morPHINE 2MG SYG) 2 mg STK-MED ONCE .ROUTE 07/17/24 09:49 07/17/24 09:49 DC Nitroglycerin (Nitrostat) 0.4 mg AD PRN SL CHEST PAIN 07/17/24 10:00 08/16/24 09:59 07/17/24 10:37 Pantoprazole Sodium (PROTonix 40MG INJ) 40 mg ONCE ONCE IVP 07/17/24 10:00 07/17/24 10:01 DC 07/17/24 10:36 Vital Signs Date Time Temp Pulse Resp B/P (MAP) Pulse Ox O2 Delivery O2 Flow Rate FiO2 07/17/24 09:00 98.2 86 16 130/57 99 Room Air* 0 21 07/17/24 08:48 97.9 90 16 119/62 95 Room Air 0 DX & DISP Disposition: Discharge Departure Impression: Primary Impression: Chest pain with high risk for cardiac etiology Additional Impressions: UTI (urinary tract infection), Dyspepsia Condition: Stable Scripts Pantoprazole Sodium (Protonix) 40 Mg Ectab 1 TAB PO DAILY for 30 Days, #30 TAB 0 Refills Prov: CINDI LARKIN MD 07/17/24 Cephalexin Monohydrate (Keflex) 500 Mg Cap 1 CAP PO BID for 10 Days, #20 CAP 0 Refills Prov: CINDI LARKIN MD 07/17/24 Additional Instructions: FOLLOW-UP WITH PRIMARY CARE PROVIDER IN 1 TO 2 DAYS. TAKE MEDICATIONS DIRECTED HERE IN THE EMERGENCY ROOM. OKAY TO CONTINUE HOME MEDICATIONS UNLESS OTHERWISE DISCUSSED DURING YOUR VISIT IN THE EMERGENCY ROOM TODAY. RETURN TO YOUR NEAREST EMERGENCY ROOM IF SYMPTOMS WORSEN OR IF THERE IS NO IMPROVEMENT. CALL 911 IF YOU NEED IMMEDIATE ASSISTANCE. TAKE TYLENOL [id number] NEEDED AND IF NO CONTRAINDICATIONS ARE PRESENT. INCREASE ORAL HYDRATION. A WOUND CULTURE OR URINE CULTURE WAS ORDERED HERE IN THE EMERGENCY ROOM DEPARTMENT PLEASE FOLLOW-UP WITH PRIMARY CARE PROVIDER AND ADVISE THEM TO GET REPEAT PORTS FROM OUR FACILITY. IF YOU HAD ANY SHMUEL WRAP/SPLINTS THAT WERE APPLIED HERE, PLEASE DO NOT REMOVE THEM UNTIL YOU SEE YOUR PRIMARY CARE OR SPECIALTY. REFERRALS: Referrals: BESS SOLER MD (PCP) Time of Disposition: 11:14 CINDI LARKIN MD Jul 17, 2024 10:43
[2024-07-17] MEDS: cefTRIAXone 1G VIAL IVPB ONE (10:52)
[2024-07-17] MEDS ORDERED: CEPH500B PO (11:14)
[2024-07-17] MEDS ORDERED: PANT40TA55 PO (11:14)
[2024-07-17 11:16] VITALS: BP 116/43; PULSE 80; RESP 16; TEMP 98; O2SAT 95
--- NOTE | 2024-07-17 11:33 | HMCIMG ---
CHEST 1VW REASON: cp COMPARISON: 12/15/2023 FINDINGS: Single view of the chest was obtained. Lungs are clear. Heart size is normal. There is no pulmonary vascular congestion. Mediastinum and bony thorax appear unremarkable. IMPRESSION: 1. Normal single view chest x-ray.
== END 2024-07-17 11:25 | disposition home or self-care (01) ==
LOC: EDH 08:47
DX: N39.0 Urinary tract infection, site not specified (principal); R07.89 Other chest pain; E78.00 Pure hypercholesterolemia, unspecified; R10.13 Epigastric pain; Z79.02 Long term (current) use of antithrombotics/antiplatelets; Z79.82 Long term (current) use of aspirin; Z79.899 Other long term (current) drug therapy; Z88.1 Allergy status to other antibiotic agents; Z90.49 Acquired absence of other specified parts of digestive tract
CPT/HCPCS: 99285; 96365; 71045; 96375; 84484 ×2; 80048; 83880; 85025; 81001; 36415; 93005; J0696; J2470; J2270

== ENCOUNTER 2024-07-19 01:19 | Emergency (ER) | payer MEDICARE ==
[~2024-07-19] VITALS: Ht 162.6 cm; Wt 73.0 kg
[~2024-07-19 01:19] MED LIST changes: +CEPH500B PO; +PANT40TA55 PO
[2024-07-19 02:12] LABS: BASOPHILS # (AUTO) 0.05 K/uL (0.00-0.20); BASOPHILS % (AUTO) 0.9 % (0.0-5.0); EOSINOPHILS # (AUTO) 0.09 K/uL (0.00-0.70); EOSINOPHILS % (AUTO) 1.6 % (0.0-8.0); HEMATOCRIT 36.9 % (36-48); IMMATURE GRANULOCYTE ABSOLUTE 0.03 K/uL (0-1); LYMPHOCYTES # (AUTO) 1.7 K/uL (1.0-4.8); MEAN CORPUSCULAR HEMOGLOBIN 28.3 pg (27.0-33.0); MEAN CORPUSCULAR HGB CONC 32.2 g/dL (32.0-36.0); MEAN CORPUSCULAR VOLUME 87.6 fL (79-99); MONOCYTES # (AUTO) 0.6 K/uL (0.1-1.0); MONOCYTES % (AUTO) 10.6 % (3.0-13.0); NEUTROPHILS # (AUTO) 3.2 K/uL (1.8-7.7); NEUTROPHILS % (AUTO) 56.4 % (40.0-77.0); PLATELET COUNT (AUTO) 173 K/uL (130-400); RED BLOOD CELL COUNT(AUTO) 4.21 MIL/uL (4.00-5.50); RED CELL DISTRIBUTION WIDTH 13.8 % (11.0-15.5); WHITE BLOOD COUNT (AUTO) 5.7 K/uL (4.8-10.8)
[2024-07-19 02:14] LABS: APPEARANCE,URINE CLEAR (CLEAR); BILIRUBIN,URINE NEGATIVE (NEGATIVE); COLOR,URINE YELLOW (YELLOW); GLUCOSE, URINE (UA) NEGATIVE (NEGATIVE); KETONES,URINE NEGATIVE (NEGATIVE); LEUKOCYTE ESTERASE ,URINE NEGATIVE Leu/uL (NEGATIVE); NITRATE,URINE NEGATIVE (NEGATIVE); OCCULT BLOOD,URINE NEGATIVE (NEGATIVE); PH,URINE 5.5 (5.0-8.0); PROTEIN,URINE NEGATIVE (NEGATIVE); UROBILINOGEN,URINE 0.2 mg/dL (0.2-1.0)
[2024-07-19 02:15] LABS: ADD UA MICROSCOPIC NO
[2024-07-19 02:19] LABS: CREATININE 0.7 mg/dL (0.5-1.0); POTASSIUM 3.9 mmol/L (3.5-5.1)
--- NOTE | 2024-07-19 02:20 | ERN ---
General Chief Complaint: Painful Urination Stated Complaint: C/O PAIN W/BURNING WHEN VOIDING Time Seen by MD: 01:23 Source: patient History of Present Illness Initial Comments Patient is a 73-year-old female with a history of cardiac disease and a aortic valve replacement approximately a year and a half ago. Just after she got the aortic valve replaced she felt some burning weird sensation in her left shoulder that would migrate down to her chest. She has not had that sensation since until yesterday. In addition, in the last two days she has had a feeling of warmth and heat in her abdomen whenever urinates. She states that she does not feel burning in her bladder when she voids, only warmth inside her stomach. She does have any other accompanying symptoms such as lightheadedness dizziness chest pain or shortness of breath or changes in defecation. Timing/Duration: 24 hours Allergies: Coded Allergies: famotidine (Unverified Allergy, Unknown, 12/15/23) levofloxacin (Unverified Allergy, Unknown, 05/06/18) Uncoded Allergies: TAPE (Allergy, Mild, SKIN TEAR, 11/29/13) IBUPROPHEN (Allergy, Unknown, NAUSEA,SHAKY, 11/29/13) Home Meds Active Scripts Pantoprazole Sodium (Protonix) 40 Mg Ectab, 1 TAB PO DAILY for 30 Days, #30 TAB 0 Refills Prov:CINDI LARKIN MD 07/17/24 Cephalexin Monohydrate (Keflex) 500 Mg Cap, 1 CAP PO BID for 10 Days, #20 CAP 0 Refills Prov:CINDI LARKIN MD 07/17/24 Omeprazole (Omeprazole) 20 Mg Capsule.dr, 20 MG PO DAILY, #15 CAP 0 Refills Prov:MACIE RIVERA NP 03/10/23 Reported Medications Metoprolol Succinate (Metoprolol Succinate) 25 Mg Tab.er.24h, 1 TAB PO DAILY for 30 Days, #30 TAB 0 Refills 12/15/23 Nitroglycerin (Nitroglycerin) 0.4 Mg Tab.subl, 1 TAB SL AD for chest pain, #25 TAB 0 Refills 1st sign of attack; may repeat every 5 mins; if pain persists after 3 in 15 min, medical attention is recommended 12/15/23 Clopidogrel Bisulfate (Clopidogrel) 75 Mg Tablet, 1 TAB PO DAILY for 30 Days, #30 TAB 0 Refills 12/15/23 Pantoprazole Sodium (Pantoprazole Sodium) 20 Mg Tablet.dr, 1 TAB PO DAILY for 30 Days, #30 TAB 0 Refills 12/15/23 Aspirin (ASPIRIN 81 MG ECTAB) 81 Mg Ectab, 81 MG PO DAILY, TAB.EC 08/03/22 Alendronate Sodium (Alendronate Sodium) 70 Mg Tablet, 70 MG PO WEEKLY, TAB 07/28/22 [Wixela] No Conflict Check, 1 PUFF IH BID PRN for SHORTNESS OF BREATH/WHEEZING 07/28/22 Albuterol Sulfate (Proair Hfa) 8.5 Gm Hfa.aer.ad, 2 PUFF IH Q6HPRN PRN for ASTHMA 05/06/18 Atorvastatin Calcium (Atorvastatin Calcium) 20 Mg Tablet, 20 MG PO AM, TAB 05/06/18 Past Medical History Past Medical History: High Cholesterol Medical History Other: OSTEOPOROSIS Past Surgical History: Other Surgical History Other: AORTIC VALVE REPLACEMENT Family History Family History: CAD, DM, HTN Social History Social History: Negative, Lives with family Constitutional: (-) chills, (-) diaphoresis, (-) fever, (-) malaise, (-) weakness, (-) other documentation EENTM: (-) eye pain, (-) blurred vision, (-) tearing, (-) double vision, (-) ear pain, (-) ear discharge, (-) nose pain, (-) nose congestion, (-) throat pain, (-) Throat swelling, (-) mouth pain, (-) tooth pain, (-) mouth swelling, (-) other documentation Respiratory: (-) cough, (-) orthopnea, (-) short of breath, (-) stridor, (-) wheezing, (-) other documentation Cardiovascular: (-) chest pain, (-) edema, (-) palpitations, (-) syncope, (-) dyspnea on exertion, (-) other documentation Gastrointestinal/Abdominal: (-) nausea, (-) vomiting, (-) diarrhea, (-) abdom inal pain, (-) abdominal distention, (-) constipation, (-) rectal bleeding, (-) dark stool/melena, (-) other documentation Genitourinary: (-) vaginal discharge, (-) vaginal bleeding, (-) dysuria, (-) frequency, (-) hematuria, (-) pain, (-) other documentation Neuro: (-) altered mental status, (-) headache, (-) syncope, (-) paralysis, (-) numbness, (-) seizure, (-) pre-existing deficit, (-) tremors, (-) weakness, (-) dizziness, (-) slurred speech, (-) vertigo, (-) other documentation Physical Exam General Appearance: (+) no apparent distress Orientation: (+) alert, (+) oriented x 3 Head/Face Trauma: No Eye: bilateral eye normal inspection, bilateral eye PERRL, bilateral eye EOMI Ear, Nose, Throat: (+) hearing grossly normal, (+) normal ENT inspection, (+) moist mucous membraine Neck: (+) normal inspection, (+) supple Respiratory: (+) chest non-tender, (+) lungs clear, (+) well ventilated Heart: (+) regular, (+) no gallop, (+) murmur Vascular: (+) no edema, (+) normal peripheral pulse Gastrointestinal: (+) soft, (+) non-tender, (+) bowel sound present Results Laboratory and Microbiology Lab and Micro Result Laboratory Tests Test 07/19/24 01:53 07/19/24 02:04 Urine Color YELLOW (YELLOW) Urine Appearance CLEAR (CLEAR) Urine pH 5.5 (5.0-8.0) Urine Specific [place] 1.019 (1.001-1.031) Urine Protein NEGATIVE mg/dL (NEGATIVE) Urine Glucose (UA) NEGATIVE mg/dL (NEGATIVE) Urine Ketones NEGATIVE mg/dL (NEGATIVE) Urine Occult Blood NEGATIVE (NEGATIVE) Urine Nitrate NEGATIVE (NEGATIVE) Urine Bilirubin NEGATIVE mg/dL (NEGATIVE) Urine Urobilinogen 0.2 mg/dL (0.2-1.0) Urine Leukocyte Esterase NEGATIVE Liyah/uL White Blood Count 5.7 K/uL (4.8-10.8) Red Blood Count 4.21 MIL/uL (4.00-5.50) Hemoglobin 11.9 g/dL (12.0-16.0) L Hematocrit 36.9 % (36-48) Mean Corpuscular Volume 87.6 fL (79-99) Mean Corpuscular Hemoglobin 28.3 pg (27.0-33.0) Mean Corpuscular Hemoglobin Concent 32.2 g/dL (32.0-36.0) Red Cell Distribution Width 13.8 % (11.0-15.5) Platelet Count 173 K/uL (130-400) Mean Platelet Volume 10.0 fL (7.5-10.5) Immature Granulocyte % (Auto) 0.5 % (0-1) Neutrophils (%) (Auto) 56.4 % (40.0-77.0) Lymphocytes (%) (Auto) 30.0 % (21.0-51.0) Monocytes (%) (Auto) 10.6 % (3.0-13.0) Eosinophils (%) (Auto) 1.6 % (0.0-8.0) Basophils (%) (Auto) 0.9 % (0.0-5.0) Neutrophils # (Auto) 3.2 K/uL (1.8-7.7) Lymphocytes # (Auto) 1.7 K/uL (1.0-4.8) Monocytes # (Auto) 0.6 K/uL (0.1-1.0) Eosinophils # (Auto) 0.09 K/uL (0.00-0.70) Basophils # (Auto) 0.05 K/uL (0.00-0.20) Absolute Immature Granulocyte (auto 0.03 K/uL (0-1) Nucleated Red Blood Cells 0.0 % (0.0-0.19) Sodium Level 137 mmol/L (136-145) Potassium Level 3.9 mmol/L (3.5-5.1) Chloride Level 102 mmol/L (101-111) Carbon Dioxide Level 30 mmol/L (21-32) Blood Urea Nitrogen 15 mg/dL (7-18) Creatinine 0.7 mg/dL (0.5-1.0) Glomerular Filtration Rate Calc 90 mL/min (>90) Random Glucose 104 mg/dL (70-105) Total Calcium 9.1 mg/dL (8.5-10.1) MDM I am not clear what is causing the patient's symptoms. I will start with a chemistry panel EKG troponins CBC UA a CT scan without contrast. His laboratory studies have all come back normal. No white count normal chemistries and a normal UA. I will get a CT scan with and without contrast to see if the patient has a renal stones somewhere. Patient's laboratory analysis is normal. CBC is normal UA is normal chemistry panel is normal. Therefore I ordered a CT scan with and without contrast. I saw no evidence of nephrolithiasis. I explained these results to the patient and she will follow up with her caramel cutter machine in her primary care physician to see if they can come up with a any explanation for her symptoms. When I was describing the findings to the patient she said that these warm feelings also start from her toes and run up to her head and then other times start from her chest and run down to her toes. In either case patient is clinically stable and can be discharged from the ED. ED Course Orders Procedure Category Date Status Time Urinalysis Profile LAB 07/19/24 Complete 01:26 Basic Metabolic Panel LAB 07/19/24 Complete 01:26 Cbc With Differential LAB 07/19/24 Complete 01:26 Ct Abdomen/Pelvis CT 07/19/24 Taken W/Wo Contras 02:59 Iohexol (Omnipaque) PHA 07/19/24 Complete 03:25 Current Medications Medications (Trade) Dose Ordered Sig/Arin Route PRN Reason Start Time Stop Time Status Last Admin Dose Admin Iohexol (Omnipaque) 35,000 mg STK-MED ONCE IV 07/19/24 03:25 07/19/24 03:26 DC Vital Signs Date Time Temp Pulse Resp B/P (MAP) Pulse Ox O2 Delivery O2 Flow Rate FiO2 07/19/24 01:30 98.4 66 16 126/58 97 Room Air* 0 21 07/19/24 01:21 97.9 69 20 132/55 97 Room Air DX & DISP Disposition: Discharge Departure Impression: Primary Impression: Hot flashes Condition: Stable Additional Instructions: Please follow-up with your primary care physician or your caramel cutter machine they may have a better idea of what is causing these warm flashes that run up and down your body and inside her abdomen when you urinate. For now you do not have a urinary tract infection nephrolithiasis or signs of infection that could be creating these symptoms. Referrals: BESS SOLER MD (PCP) ÁNGEL CRUM MD Jul 19, 2024 02:20
[2024-07-19] MEDS ORDERED: IOHEXOL 350 MG/ML 100ML INFUS..BTL IV ONE (03:25)
[2024-07-19 05:56] VITALS: BP 122/66; PULSE 62; RESP 16; TEMP 98.3; O2SAT 98
--- NOTE | 2024-07-19 10:21 | HMCIMG ---
CT ABDOMEN/PELVIS W/WO CONTRAS REASON: pain during urination COMPARISON: 11/20/2022 TECHNIQUE: Images are obtained from lung bases to symphysis pubis before and after IV contrast, 100 cc Omnipaque 350. FINDINGS: Lung bases are clear. There are no focal liver lesions. There are normal-appearing kidneys.. Spleen and pancreas appear unremarkable. There has been a previous cholecystectomy. Bowel loops appear unremarkable. This includes normal appearance of the appendix There is no evidence of free fluid or intraperitoneal air. There are no focal fluid collections. Aorta and retroperitoneum appear normal as do pelvic soft tissue structures. The anterior abdominal wall is intact. Osseous structures appear unremarkable. 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 IMPRESSION: 1.. No acute process seen in the abdomen or pelvis. CT was performed with one or more following dose reduction techniques: automated exposure control, adjustment of the mA and kv according to patient's size, or use of a iterative reconstruction technique.
== END 2024-07-19 05:59 | disposition home or self-care (01) ==
LOC: EDH 01:19
DX: N95.1 Menopausal and female climacteric states (principal); R23.2 Flushing; E78.00 Pure hypercholesterolemia, unspecified; Z79.02 Long term (current) use of antithrombotics/antiplatelets; Z79.82 Long term (current) use of aspirin; Z79.899 Other long term (current) drug therapy; Z88.1 Allergy status to other antibiotic agents; Z95.2 Presence of prosthetic heart valve
CPT/HCPCS: 99285; 74178; 80048; 85025; 81003; 36415; Q9967

== ENCOUNTER 2024-07-23 14:28 | Emergency (ER) | payer MEDICARE ==
[~2024-07-23] VITALS: Ht 162.6 cm; Wt 83.9 kg
--- NOTE | 2024-07-23 14:36 | ERN ---
ED Note History of Present Illness Stated Complaint: CHEST TIGHTNESS, ABDOMINAL PAIN, BILATERAL LEG NELSON Chief Complaint: Multiple Complaints Time Seen by MD: 14:30 Dictation: PATIENT IS A 73-YEAR-OLD FEMALE HERE WITH MULTIPLE COMPLAINTS DUE TO INCLUDE BURNING AND DISCOMFORT TO HER UPPER ESOPHAGEAL AREA OF HER CHEST. SHE ALSO STATES SHE IS HAVING DIFFUSE LOWER PELVIC ABDOMINAL PAIN FOR 2-3 DAYS. FINALLY SHE STATES BOTH OF HER LEGS HURT. SHE HAS HAD NO FEVER NO CHILLS NO NAUSEA VOMITING. SHE STATES SHE DOES HAVE A HISTORY OF ATRIAL FIBRILLATION. SHE STATES SHE SAW HER PRIMARY CARE DOCTOR LAST WEEK WHO REFERRED HER TO [facility] AND SHE SAW THE PA. THE PA ADVISED HER HE WANTED TO RUN AN ULTRASOUND OF HER ABDOMEN HOWEVER SHE IS NOT SURE WHAT HE WAS GOING TO DO. FINALLY SHE STATES SHE HAS BEEN CONSTIPATED FOR SEVERAL DAYS AND THEN TODAY SHE IS NOW HAVING LOOSE STOOLS. Allergies: Coded Allergies: famotidine (Unverified Allergy, Unknown, 12/15/23) levofloxacin (Unverified Allergy, Unknown, 05/06/18) Uncoded Allergies: TAPE (Allergy, Mild, SKIN TEAR, 11/29/13) IBUPROPHEN (Allergy, Unknown, NAUSEA,SHAKY, 11/29/13) Home Meds Active Scripts Pantoprazole Sodium (Protonix) 40 Mg Ectab, 1 TAB PO DAILY for 30 Days, #30 TAB 0 Refills Prov:CINDI LARKIN MD 07/17/24 Cephalexin Monohydrate (Keflex) 500 Mg Cap, 1 CAP PO BID for 10 Days, #20 CAP 0 Refills Prov:CINDI LARKIN MD 07/17/24 Omeprazole (Omeprazole) 20 Mg Capsule.dr, 20 MG PO DAILY, #15 CAP 0 Refills Prov:MACIE RIVERA NP 03/10/23 Reported Medications Metoprolol Succinate (Metoprolol Succinate) 25 Mg Tab.er.24h, 1 TAB PO DAILY for 30 Days, #30 TAB 0 Refills 12/15/23 Nitroglycerin (Nitroglycerin) 0.4 Mg Tab.subl, 1 TAB SL AD for chest pain, #25 TAB 0 Refills 1st sign of attack; may repeat every 5 mins; if pain persists after 3 in 15 min, medical attention is recommended 12/15/23 Clopidogrel Bisulfate (Clopidogrel) 75 Mg Tablet, 1 TAB PO DAILY for 30 Days, #30 TAB 0 Refills 12/15/23 Pantoprazole Sodium (Pantoprazole Sodium) 20 Mg Tablet.dr, 1 TAB PO DAILY for 30 Days, #30 TAB 0 Refills 12/15/23 Aspirin (ASPIRIN 81 MG ECTAB) 81 Mg Ectab, 81 MG PO DAILY, TAB.EC 08/03/22 Alendronate Sodium (Alendronate Sodium) 70 Mg Tablet, 70 MG PO WEEKLY, TAB 07/28/22 [Wixela] No Conflict Check, 1 PUFF IH BID PRN for SHORTNESS OF BREATH/WHEEZING 07/28/22 Albuterol Sulfate (Proair Hfa) 8.5 Gm Hfa.aer.ad, 2 PUFF IH Q6HPRN PRN for ASTHMA 05/06/18 Atorvastatin Calcium (Atorvastatin Calcium) 20 Mg Tablet, 20 MG PO AM, TAB 05/06/18 Past Medical History Past Medical History: CAD, GERD, High Cholesterol Additional Past Medical Hx: OSTEOPOROSIS Surgical History: Other Surgical History Other: AORTIC VALVE REPLACEMENT Family History: CAD, DM, HTN Social History: Negative, Lives with family Review of System Dictation CONSTITUTIONAL: NEGATIVE EXCEPT FOR HPI HEAD/FACE: NEGATIVE EXCEPT FOR HPI EENT: NEGATIVE EXCEPT FOR HPI RESPIRATORY: NEGATIVE EXCEPT FOR HPI GASTROINTESTINAL/ABDOMINAL: NEGATIVE EXCEPT FOR HPI EPIGASTRIC PAIN GENITOURINARY: NEGATIVE EXCEPT FOR HPI MUSCULOSKELETAL: NEGATIVE EXCEPT FOR HPI BILATERAL LOWER EXTREMITY PAIN INTEGUMENTARY: NEGATIVE EXCEPT FOR HPI NEUROLOGICAL/PSYCH: NEGATIVE EXCEPT FOR HPI HEMATOLOGIC/LYMPHATIC: NEGATIVE EXCEPT FOR HPI ALL SYSTEMS NEGATIVE, EXCEPT NOTED ABOVE. 13 POINT REVIEW OF SYSTEMS ASSESSED AND ALL NEGATIVE EXCEPT FOR ABOVE. Initial Vital Sign VS Vital Signs Date Time Temp Pulse Resp B/P (MAP) Pulse Ox O2 Delivery O2 Flow Rate FiO2 07/23/24 14:29 98.8 93 16 167/77 98 0 07/23/24 15:44 Room Air* 21 Physical Exam Dictation VITAL SIGNS REVIEWED GENERAL APPEARANCE: ALERT, ORIENTED X 3, NO ACUTE DISTRESS, WELL DEVELOPED, NOURISHED. NOTED TO BE ANXIOUS HEAD AND FACE: NON-TRAUMATIC. EYES: PERRL, PINK CONJUNCTIVAS, EYELID NO TRAUMA, ANTERIOR CHAMBER WITH ARCUS SENILIS. EARS: PINNAS INTACT AND NO SIGNS OF TRAUMA OR ERYTHEMA EAR CANALS CLEAR AND NO DISCHARGE TM NO ERYTHEMA NOSE: NO DISCHARGE, NO BLEEDING. OROPHARYNX: MOUTH NORMAL, TONGUE PINK, PHARYNX CLEAR,NO ERYTHEMA, TONSILS NO EXUDATES, NO ABSCESSES NOTED, MUCOUS MEMBRANE MOIST NECK: SUPPLE, NON-TENDER, NO THYROMEGALY, NO MASSES, NO JVD, NO BRUITS BREAST:DEFERRED CHEST:NO TENDERNESS, NO CREPITUS, NO PARADOXICAL MOVEMENT, NO RETRACTIONS LUNGS:CLEAR, WELL-VENTILATED, SYMMETRIC, NO RALES, NO WHEEZING, NO RHONCHI, NO STRIDOR, GOOD BREATH SOUNDS BILATERALLY HEART: REGULAR RATE, REGULAR RHYTHM, NO MURMUR, NO GALLOPS VASCULAR: NO PERIPHERAL EDEMA, ABDOMEN: SOFT, POSITIVE BOWEL SOUNDS, NONDISTENDED, NO GUARDING, NONTENDER, NO REBOUND, NO MASSES NO HEPATOMEGALY, NO SPLENOMEGALY, NO CAO'S SIGN, NO HERNIAS. NO TENDERNESS RECTAL: DEFERRED GENITAL: DEFERRED NEUROLOGICAL: NORMAL SPEECH, MOTOR FUNCTION INTACT, SENSORY FUNCTION INTACT MUSCULOSKELETAL: NECK NONTENDER, FULL RANGE OF MOTION, BACK NONTENDER, FULL RANGE OF MOTION, EXTREMITIES: NONTENDER, FULL RANGE OF MOTION SKIN: COLOR PINK, DRY, NO TURGOR, NO RASH, NO LACERATIONS, NO ABRASIONS, NO CONTUSIONS. NO ERYTHEMA NO CALF PAIN SKIN IS INTACT. NEUROVASCULAR CMS INTACT LYMPHATIC: DEFERRED Results (Laboratory/Radiology) Laboratory/Radiology Laboratory Tests Test 07/23/24 14:50 07/23/24 15:33 White Blood Count 7.1 K/uL (4.8-10.8) Red Blood Count 4.43 MIL/uL (4.00-5.50) Hemoglobin 12.4 g/dL (12.0-16.0) Hematocrit 39.4 % (36-48) Mean Corpuscular Volume 88.9 fL (79-99) Mean Corpuscular Hemoglobin 28.0 pg (27.0-33.0) Mean Corpuscular Hemoglobin Concent 31.5 g/dL (32.0-36.0) L Red Cell Distribution Width 13.6 % (11.0-15.5) Platelet Count 163 K/uL (130-400) Mean Platelet Volume 10.1 fL (7.5-10.5) Immature Granulocyte % (Auto) 0.4 % (0-1) Neutrophils (%) (Auto) 67.4 % (40.0-77.0) Lymphocytes (%) (Auto) 22.4 % (21.0-51.0) Monocytes (%) (Auto) 8.6 % (3.0-13.0) Eosinophils (%) (Auto) 0.8 % (0.0-8.0) Basophils (%) (Auto) 0.4 % (0.0-5.0) Neutrophils # (Auto) 4.8 K/uL (1.8-7.7) Lymphocytes # (Auto) 1.6 K/uL (1.0-4.8) Monocytes # (Auto) 0.6 K/uL (0.1-1.0) Eosinophils # (Auto) 0.06 K/uL (0.00-0.70) Basophils # (Auto) 0.03 K/uL (0.00-0.20) Absolute Immature Granulocyte (auto 0.03 K/uL (0-1) Nucleated Red Blood Cells 0.0 % (0.0-0.19) Sodium Level 139 mmol/L (136-145) Potassium Level 3.8 mmol/L (3.5-5.1) Chloride Level 104 mmol/L (101-111) Carbon Dioxide Level 29 mmol/L (21-32) Blood Urea Nitrogen 11 mg/dL (7-18) Creatinine 0.6 mg/dL (0.5-1.0) Glomerular Filtration Rate Calc 94 mL/min (>90) Random Glucose 109 mg/dL (70-105) H Total Calcium 9.0 mg/dL (8.5-10.1) Troponin I High Sensitivity 5 ng/L (4-50) Lipase 45 U/L (16-77) Urine Color LIGHT-YELLOW (YELLOW) Urine Appearance CLEAR (CLEAR) Urine pH 6.0 (5.0-8.0) Urine Specific Watson 1.017 (1.001-1.031) Urine Protein NEGATIVE mg/dL (NEGATIVE) Urine Glucose (UA) NEGATIVE mg/dL (NEGATIVE) Urine Ketones NEGATIVE mg/dL (NEGATIVE) Urine Occult Blood NEGATIVE (NEGATIVE) Urine Nitrate NEGATIVE (NEGATIVE) Urine Bilirubin NEGATIVE mg/dL (NEGATIVE) Urine Urobilinogen 0.2 mg/dL (0.2-1.0) Urine Leukocyte Esterase NEGATIVE Liyah/uL Labs Reviewed?: Yes EKG Comment: SINUS RHYTHM/HEART RATE 83/TRIGEMINAL ED Course ED Course Orders Procedure Category Date Status Time Cbc With Differential LAB 07/23/24 Complete 14:34 Troponin I High LAB 07/23/24 Complete Sensitivity 14:34 Urinalysis Profile LAB 07/23/24 Complete 14:34 12 Lead Ekg Tracing- EKG 07/23/24 Logged Technical 14:34 0.9%Nacl 1000ml (Ns PHA 07/23/24 Complete 1000ml) 15:00 Lipase LAB 07/23/24 Complete 14:34 Basic Metabolic Panel LAB 07/23/24 Complete 14:34 Current Medications Medications (Trade) Dose Ordered Sig/Arin Route PRN Reason Start Time Stop Time Status Last Admin Dose Admin Sodium Chloride 1,000 ml @ 0 mls/hr ONCE ONCE IV 07/23/24 15:00 07/23/24 15:01 DC 07/23/24 16:06 Vital Signs Date Time Temp Pulse Resp B/P (MAP) Pulse Ox O2 Delivery O2 Flow Rate FiO2 07/23/24 15:44 98.1 72 18 152/76 96 Room Air* 0 21 07/23/24 14:29 98.8 93 16 167/77 98 0 1640/PATIENT VOICES NO COMPLAINTS OF ANYTHING SHE JUST WANTS TO GO HOME. SHE IS AWARE THAT EKG LABS ARE ALL NEGATIVE NO REASON FOR ADMISSION OR NO TREATABLE CONDITION AT THIS TIME. SHE IS ON CARAFATE FOR GASTRITIS HOWEVER HAS NOT BEEN TAKING IT BECAUSE IT IS TOO HARD TO SWALLOWING. I ADVISED HER TO CRUSH THE PILL AND MIXED IN WATER TAKE HAS A SLURRY. SHE AGREES. HEART Score Response (Comments) Value EKG: Repolarization changes 1 Age: > 65yrs (+2) 2 Risk Factors: 1-2 risk factors (+1) 1 Initial Troponin: Normal limit (0) 0 Total 4 Medical Decision Making MDM MDM: DIFFERENTIAL DIAGNOSIS: ACS/AMI/ELECTROLYTE IMBALANCE/DEHYDRATION/GASTRITIS/PANCREATITIS RATIONALE: TESTS CONSIDERED AND ORDERED SECONDARY TO SHARED DECISION MAKING INCLUDE: EKG/LABS PREVIOUS OUTSIDE RECORDS REVIEWED: OLD ER VISITS. RISK OF COMPLICATION AND/OR MORBIDITY OR MORTALITY OF PATIENT MANAGEMENT: NONE MEDICATIONS-PER MEDICATION RECONCILIATION NEED FOR HOSPITALIZATION: PATIENT DOES NOT MEET CRITERIA FOR HOSPITALIZATION. NONE NEED FOR EMERGENCY MAJOR/MINOR SURGERY: NO THERE ARE NO SOCIAL CONCERNS WITH THIS PATIENT. PRESCRIPTION DRUG MANAGEMENT NONE PRESCRIPTIONS WILL INCLUDE SYMPTOMATIC CARE PATIENT'S PRIOR EXTERNAL MEDICAL RECORDS FROM OTHER ER VISITS WERE REVIEWED BY ME INDICATED. PRIOR TESTING AND RESULTS FROM PREVIOUS VISITS WERE REVIEWED. PRIOR TESTS WERE TAKEN INTO ACCOUNT WITH MEDICAL DECISION MAKING AND RESOURCE UTILIZATION, INDEPENDENT HISTORIAN/HISTORIANS WERE USED TO OBTAIN COMPLETE MEDICAL HISTORY. I INDEPENDENTLY INTERPRETED THE TEST THAT WERE PERFORMED, RESULTS WERE REVIEWED BY ME AND CONSIDERED FINDINGS ON RADIOLOGY IF ORDERED. MEDICAL MANAGEMENT AND EXAMINATION INTERPRETATION DISCUSSIONS WERE HAD BY ME WITH OTHER QUALIFIED HEALTHCARE PROFESSIONALS INDICATED FOR THE PATIENT'S CARE. DX & DISP Disposition: Discharge Departure Impression: Primary Impression: Dyspepsia Additional Impressions: Anxiety reaction, Atypical chest pain Condition: Stable Additional Instructions: FOLLOW-UP WITH PRIMARY CARE PROVIDER IN 1 TO 2 DAYS. TAKE MEDICATIONS DIRECTED HERE IN THE EMERGENCY ROOM. OKAY TO CONTINUE HOME MEDICATIONS UNLESS OTHERWISE DISCUSSED DURING YOUR VISIT IN THE EMERGENCY ROOM TODAY. RETURN TO YOUR NEAREST EMERGENCY ROOM IF SYMPTOMS WORSEN OR IF THERE IS NO IMPROVEMENT. CALL 911 IF YOU NEED IMMEDIATE ASSISTANCE. TAKE TYLENOL OR MOTRIN [id number] NEEDED AND IF NO CONTRAINDICATIONS ARE PRESENT. INCREASE ORAL HYDRATION. A WOUND CULTURE OR URINE CULTURE WAS ORDERED HERE IN THE EMERGENCY ROOM DEPARTMENT PLEASE FOLLOW-UP WITH PRIMARY CARE PROVIDER AND ADVISE THEM TO GET REPEAT PORTS FROM OUR FACILITY. IF YOU HAD ANY SHMUEL WRAP/SPLINTS THAT WERE APPLIED HERE, PLEASE DO NOT REMOVE THEM UNTIL YOU SEE YOUR PRIMARY CARE OR SPECIALTY. CONTINUE ALL MEDICATIONS AND TREATMENTS FROM YOUR DOCTOR. CRUSH CARAFATE AND MIXED IN WATER AND TAKE A SLURRY. FOLLOW UP WITH YOUR DOCTOR NEXT WEEK Referrals: BESS SOLER MD (PCP) Time of Disposition: 16:39 I have reviewed the case, and I agree with, Diagnosis and Plan KIRSTIE JIMENEZ NP Jul 23, 2024 14:36
[2024-07-23 15:00] LABS: BASOPHILS # (AUTO) 0.03 K/uL (0.00-0.20); BASOPHILS % (AUTO) 0.4 % (0.0-5.0); EOSINOPHILS # (AUTO) 0.06 K/uL (0.00-0.70); EOSINOPHILS % (AUTO) 0.8 % (0.0-8.0); HEMATOCRIT 39.4 % (36-48); IMMATURE GRANULOCYTE ABSOLUTE 0.03 K/uL (0-1); LYMPHOCYTES # (AUTO) 1.6 K/uL (1.0-4.8); LYMPHOCYTES % (AUTO) 22.4 % (21.0-51.0); MEAN CORPUSCULAR HGB CONC 31.5 g/dL (32.0-36.0); MEAN CORPUSCULAR VOLUME 88.9 fL (79-99); MONOCYTES # (AUTO) 0.6 K/uL (0.1-1.0); MONOCYTES % (AUTO) 8.6 % (3.0-13.0); NEUTROPHILS # (AUTO) 4.8 K/uL (1.8-7.7); NEUTROPHILS % (AUTO) 67.4 % (40.0-77.0); PLATELET COUNT (AUTO) 163 K/uL (130-400); RED BLOOD CELL COUNT(AUTO) 4.43 MIL/uL (4.00-5.50); RED CELL DISTRIBUTION WIDTH 13.6 % (11.0-15.5); WHITE BLOOD COUNT (AUTO) 7.1 K/uL (4.8-10.8)
[2024-07-23 15:07] LABS: CREATININE 0.6 mg/dL (0.5-1.0); POTASSIUM 3.8 mmol/L (3.5-5.1)
[2024-07-23 15:44] LABS: APPEARANCE,URINE CLEAR (CLEAR); BILIRUBIN,URINE NEGATIVE (NEGATIVE); COLOR,URINE LIGHT-YELLOW (YELLOW); GLUCOSE, URINE (UA) NEGATIVE (NEGATIVE); KETONES,URINE NEGATIVE (NEGATIVE); LEUKOCYTE ESTERASE ,URINE NEGATIVE Leu/uL (NEGATIVE); NITRATE,URINE NEGATIVE (NEGATIVE); OCCULT BLOOD,URINE NEGATIVE (NEGATIVE); PROTEIN,URINE NEGATIVE (NEGATIVE); UROBILINOGEN,URINE 0.2 mg/dL (0.2-1.0)
[2024-07-23 15:45] LABS: ADD UA MICROSCOPIC NO
[2024-07-23] MEDS: 0.9%NACL 1000ML 1,000 ML IV ONE (16:06)
[2024-07-23 17:39] VITALS: BP 148/67; PULSE 78; RESP 16; TEMP 98.3; O2SAT 96
--- NOTE | 2024-07-24 09:21 | EKG ---
[facility] Test Date: 2024-07-23 Test Time: 14:37:46 Pat Name: ARNEL ALBA Department: ED Room: Gender: F [employer]er: [id number] : [id number] Requested By: KIRSTIE JIMENEZ Order Number: [id number] Reading MD: Manish Canada Measurements Intervals [place] Rate: 83 P: 74 HI: 180 QRS: -6 QRSD: 79 T: 29 QT: 369 QTc: 434 Interpretive Statements Sinus rhythm Ventricular trigeminy Consider anteroseptal infarct Compared to ECG 07/17/2024 09:04:55 Ventricular premature complex(es) now present Myocardial infarct finding now present First degree AV block no longer present Electronically Signed On 07-24-2024 17:33:00 CDT by Manish Canada Please click the below link to view image of tracing.
== END 2024-07-23 17:46 | disposition home or self-care (01) ==
LOC: EDH 14:28
DX: R10.13 Epigastric pain (principal); F41.1 Generalized anxiety disorder; R07.89 Other chest pain; E78.00 Pure hypercholesterolemia, unspecified; I25.10 Atherosclerotic heart disease of native coronary artery without angina pectoris; Z79.02 Long term (current) use of antithrombotics/antiplatelets; Z79.82 Long term (current) use of aspirin; Z79.899 Other long term (current) drug therapy; Z88.1 Allergy status to other antibiotic agents; Z95.2 Presence of prosthetic heart valve
CPT/HCPCS: 99284; 96360; 96361; 84484; 80048; 83690; 85025; 81003; 36415; 93005; J7030; 99283

== ENCOUNTER → 2024-08-10 | Outpatient (CLI) | payer MEDICARE ==
[2024-08-10] MEDS: REGADENOSON 0.4 MG/5 ML PF SYG IVP ONE (10:19)
== END | disposition home or self-care (01) ==
LOC: SHCH 08:09
PROVIDERS: ATTEND Internal Medicine Cardiovascular Disease
DX: R06.02 Shortness of breath (principal)
CPT/HCPCS: 78452; 93017; J2785; A9500 ×2

== ENCOUNTER → 2024-08-16 | Outpatient (CLI) | payer MEDICARE ==
--- NOTE | 2024-08-16 13:19 | HMCIMG ---
Percutaneous ultrasound-guided paracentesis. Clinical history: 71-year-old female with intractable ascites PROCEDURE: Under ultrasound guidance right lower quadrant with localized with large ascites pocket is identified. After sterile prep and drape one percent Xylocaine was used for local anesthetic. yueh needle and catheter was introduced. 7 L of ascitic fluid removed. Patient tolerated procedure well IMPRESSION: Percutaneous ultrasound-guided abdominal paracentesis performed with 7 L of ascitic clear fluid removed. Patient tolerated procedure well Patient is amenable for possible TIPS procedure.
== END | disposition home or self-care (01) ==
LOC: RAH 08:30
PROVIDERS: ATTEND Internal Medicine Gastroenterology
DX: K21.9 Gastro-esophageal reflux disease without esophagitis (principal); K44.9 Diaphragmatic hernia without obstruction or gangrene; R10.84 Generalized abdominal pain; R07.9 Chest pain, unspecified; R18.8 Other ascites
CPT/HCPCS: 74240